=== PATIENT | female | born 1995 | race Caucasian/White ===

== ENCOUNTER 2017-10-27 12:15 | Emergency (ER) | payer OTHER ==
[2017-10-27 17:14] LABS: BASOPHIL % 0.2 % (0-2); PLATELET COUNT 190 x10^3mcL (130-400); RED CELL DISTRIBUTION WIDTH 13.6 % (11.5-14.5)
[2017-10-27 17:56] VITALS: BP 124/87
== END 2017-10-27 17:56 | disposition home or self-care (01) ==
LOC: ED 12:15
PROVIDERS: Emergency Medicine
DX: N93.8 Other specified abnormal uterine and vaginal bleeding (principal); N92.1 Excessive and frequent menstruation with irregular cycle
CPT/HCPCS: 36415; 87804; J1885

== ENCOUNTER 2018-09-01 18:17 | Emergency (ER) | payer OTHER ==
[~2018-09-01] VITALS: Ht 160 cm; Wt 73.0 kg
[2018-09-01 18:57] VITALS: BP 139/6; Ht 160 cm; Wt 73.0 kg
== END 2018-09-01 21:00 | disposition home or self-care (01) ==
LOC: ED 18:17
DX: R22.1 Localized swelling, mass and lump, neck (principal); R03.0 Elevated blood-pressure reading, without diagnosis of hypertension; R53.83 Other fatigue